=== PATIENT | female | born 1960 | race African-American/Black ===

== ENCOUNTER 2021-06-26 06:29 | Inpatient (IN) | payer MEDICAID, OTHER ==
[~2021-06-26] VITALS: Ht 167.6 cm; Wt 80.7 kg
[2021-06-26 08:55] LABS: BASOPHILS % 0.4 % (0.0-2.0); EOSINOPHILS % 0.2 % (0.0-5.0); HEMATOCRIT. 42.9 % (36.0-48.0); HEMOGLOBIN. 14.2 g/dL (12.0-16.0); LYMPHOCYTES % 21.9 % (20.0-50.0); MEAN CORPUSCULAR HEMOGLOBIN 31.3 pg (28.0-32.0); MEAN CORPUSCULAR VOLUME 94.6 fL (81.0-99.0); MEAN PLATELET VOLUME 10.7 fl (7.4-10.4); MONOCYTES % 6.8 % (2.0-8.0); NEUTROPHILS % 70.7 % (40.0-76.0); PLATELET 224 x1000/uL (130-400); RED BLOOD CELL COUNT 4.53 mill/uL (4.2-5.4); RED CELL DISTRIBUTION WIDTH 14.1 % (11.6-14.6)
[2021-06-26 09:03] LABS: CHLORIDE 109 mEq/L (98-107)
[2021-06-26 09:08] LABS: ETHANOL BLOOD < 10 mg/dL
[2021-06-26 09:13] LABS: CREATINE KINASE 371 IU/L (26-192)
[2021-06-26] MEDS ORDERED: SODIUM CHLORIDE 0.9% 1,000 ML IV ONE (10:00)
[2021-06-26] MEDS ORDERED: DEXTROSE 50% WATER 50ML SYRINGE IV PRN (20:45)
[2021-06-26] MEDS ORDERED: ONDANSETRON HCL 4MG/2ML INJ IV PRN (20:45)
[2021-06-26] MEDS: BLOOD SUGAR DIAGNOSTIC STRIP TEST SCH (23:52)
[2021-06-26] MEDS: ENOXAPARIN 40MG/0.4ML SYR SUBCUT SCH (23:53)
[2021-06-27] MEDS: INSULIN LISPRO 100 UNITS/ML SUBCUT SCH ×5 (00:08→20:29)
[2021-06-27 01:43] LABS: CLARITY URINE CLEAR (CLEAR); COLOR URINE YELLOW (YELLOW); KETONES URINE NEGATIVE (NEGATIVE); LEUKOCYTE ESTERASE URINE NEGATIVE (NEGATIVE); NITRITE URINE NEGATIVE (NEGATIVE); OCCULT BLOOD URINE NEGATIVE (NEGATIVE); PH URINE 5.5 (4.5-8.0); PROTEIN URINE 2+ (NEGATIVE); SPECIFIC GRAVITY URINE 1.021 (1.005-1.030); UROBILINOGEN URINE 0.2 E.U./dL (0.2-1.0)
[2021-06-27 02:01] LABS: *BENZODIAZEPINES SCREEN URINE NEGATIVE (NEGATIVE); *COCAINE SCREEN URINE PRESUMTIVE POSITIVE (NEGATIVE); METHADONE URINE SCREEN NEGATIVE (NEGATIVE); OPIATES URINE SCREEN NEGATIVE (NEGATIVE)
[2021-06-27 02:02] LABS: *AMPHETAMINES SCREEN URINE NEGATIVE (NEGATIVE); *BARBITURATES SCREEN URINE NEGATIVE (NEGATIVE); CANNABINOID URINE SCREEN NEGATIVE (NEGATIVE); PHENCYCLIDINE URINE SCREEN NEGATIVE (NEGATIVE)
[2021-06-27] MEDS: BLOOD SUGAR DIAGNOSTIC STRIP TEST SCH ×4 (08:17→20:29)
[2021-06-27] MEDS: ASPIRIN 81MG EC TABLET PO SCH (10:46)
[2021-06-27] MEDS: AMLODIPINE 10MG TABLET PO SCH (19:10)
[2021-06-27] MEDS: ENOXAPARIN 40MG/0.4ML SYR SUBCUT SCH (20:29)
[2021-06-28 01:00] VITALS: BP 130/80
[2021-06-28 03:45] VITALS: BP 115/96
[2021-06-28 04:30] VITALS: BP 138/64
[2021-06-28] MEDS: BLOOD SUGAR DIAGNOSTIC STRIP TEST SCH ×4 (07:40→21:20)
[2021-06-28 08:00] VITALS: BP 129/72
[2021-06-28] MEDS: ASPIRIN 81MG EC TABLET PO SCH (08:45)
[2021-06-28] MEDS: AMLODIPINE 10MG TABLET PO SCH (08:45)
[2021-06-28] MEDS: INSULIN LISPRO 100 UNITS/ML SUBCUT SCH ×4 (08:52→21:22)
[2021-06-28] MEDS ORDERED: INSULIN GLARGINE UD 100 UNITS/ML SYR SUBCUT NR (13:00)
[2021-06-28 16:00] VITALS: BP 133/76
[2021-06-28 20:00] VITALS: BP 109/60
[2021-06-28] MEDS: ENOXAPARIN 40MG/0.4ML SYR SUBCUT SCH (21:20)
[2021-06-28] MEDS: INSULIN GLARGINE UD 100 UNITS/ML SYR SUBCUT SCH (21:21)
[2021-06-29] VITALS: BP 143/93
[2021-06-29 02:00] VITALS: BP 130/93
[2021-06-29] MEDS: BLOOD SUGAR DIAGNOSTIC STRIP TEST SCH ×4 (06:55→21:12)
[2021-06-29 08:00] VITALS: BP 154/89
[2021-06-29] MEDS: ASPIRIN 81MG EC TABLET PO SCH (08:45)
[2021-06-29] MEDS: AMLODIPINE 10MG TABLET PO SCH (08:45)
[2021-06-29] MEDS: INSULIN LISPRO 100 UNITS/ML SUBCUT SCH ×4 (08:46→21:13)
[2021-06-29] MEDS: INSULIN GLARGINE UD 100 UNITS/ML SYR SUBCUT SCH ×2 (11:12→21:14)
[2021-06-29 12:00] VITALS: BP 138/79
[2021-06-29 16:00] VITALS: BP 131/61
[2021-06-29 20:00] VITALS: BP 140/76
[2021-06-29] MEDS: ENOXAPARIN 40MG/0.4ML SYR SUBCUT SCH (21:14)
[2021-06-30] VITALS: BP 114/68
[2021-06-30 04:00] VITALS: BP 150/86
[2021-06-30] MEDS: BLOOD SUGAR DIAGNOSTIC STRIP TEST SCH ×4 (07:38→21:33)
[2021-06-30] MEDS: INSULIN LISPRO 100 UNITS/ML SUBCUT SCH ×4 (07:38→21:34)
[2021-06-30 08:00] VITALS: BP 136/96
[2021-06-30] MEDS: ASPIRIN 81MG EC TABLET PO SCH (09:06)
[2021-06-30] MEDS: AMLODIPINE 10MG TABLET PO SCH (09:06)
[2021-06-30] MEDS: INSULIN GLARGINE UD 100 UNITS/ML SYR SUBCUT SCH ×2 (10:43→21:34)
[2021-06-30 16:00] VITALS: BP 136/96
[2021-06-30 20:00] VITALS: BP 127/85
[2021-06-30] MEDS: ENOXAPARIN 40MG/0.4ML SYR SUBCUT SCH (21:33)
[2021-06-30] MEDS: ZOLPIDEM TARTRATE 5MG TABLET PO PRN (21:33)
[2021-07-01] VITALS: BP 125/80
[2021-07-01 04:00] VITALS: BP 137/62
[2021-07-01] MEDS: BLOOD SUGAR DIAGNOSTIC STRIP TEST SCH ×4 (07:48→21:40)
[2021-07-01 08:00] VITALS: BP 129/75
[2021-07-01] MEDS: ASPIRIN 81MG EC TABLET PO SCH (08:44)
[2021-07-01] MEDS: AMLODIPINE 10MG TABLET PO SCH (08:44)
[2021-07-01] MEDS: INSULIN LISPRO 100 UNITS/ML SUBCUT SCH ×4 (08:47→21:41)
[2021-07-01] MEDS: INSULIN GLARGINE UD 100 UNITS/ML SYR SUBCUT SCH ×2 (10:55→22:33)
[2021-07-01 12:00] VITALS: BP 115/79
[2021-07-01 16:04] VITALS: BP 120/81
[2021-07-01 20:00] VITALS: BP 137/71
[2021-07-01] MEDS: ENOXAPARIN 40MG/0.4ML SYR SUBCUT SCH (21:40)
[2021-07-01] MEDS: ZOLPIDEM TARTRATE 5MG TABLET PO PRN (21:40)
[2021-07-02] VITALS: BP 140/76
[2021-07-02 04:00] VITALS: BP 140/88
[2021-07-02] MEDS: BLOOD SUGAR DIAGNOSTIC STRIP TEST SCH ×4 (07:39→20:38)
[2021-07-02] MEDS: INSULIN LISPRO 100 UNITS/ML SUBCUT SCH ×4 (07:39→20:26)
[2021-07-02 08:00] VITALS: BP 132/79
[2021-07-02] MEDS: ASPIRIN 81MG EC TABLET PO SCH (09:45)
[2021-07-02] MEDS: AMLODIPINE 10MG TABLET PO SCH (09:46)
[2021-07-02] MEDS: INSULIN GLARGINE UD 100 UNITS/ML SYR SUBCUT SCH ×2 (09:46→22:46)
[2021-07-02 12:00] VITALS: BP 121/76
[2021-07-02 16:00] VITALS: BP 124/87
[2021-07-02 20:00] VITALS: BP 131/78
[2021-07-02] MEDS: ENOXAPARIN 40MG/0.4ML SYR SUBCUT SCH (20:26)
[2021-07-02] MEDS: ZOLPIDEM TARTRATE 5MG TABLET PO PRN (20:26)
[2021-07-03] VITALS: BP 124/72
[2021-07-03 04:00] VITALS: BP 119/88
[2021-07-03 08:00] VITALS: BP 128/75
[2021-07-03 08:15] LABS: CHLORIDE 107 mEq/L (98-107)
[2021-07-03 08:16] LABS: BASOPHILS % 0.7 % (0.0-2.0); HEMATOCRIT. 39.1 % (36.0-48.0); HEMOGLOBIN. 13.2 g/dL (12.0-16.0); LYMPHOCYTES % 27.9 % (20.0-50.0); MEAN CORPUSCULAR HEMOGLOBIN 31.2 pg (28.0-32.0); MEAN CORPUSCULAR VOLUME 92.9 fL (81.0-99.0); MEAN PLATELET VOLUME 9.6 fl (7.4-10.4); MONOCYTES % 13.3 % (2.0-8.0); NEUTROPHILS % 56.1 % (40.0-76.0); PLATELET 309 x1000/uL (130-400); RED BLOOD CELL COUNT 4.21 mill/uL (4.2-5.4)
[2021-07-03] MEDS: BLOOD SUGAR DIAGNOSTIC STRIP TEST SCH ×4 (08:26→21:00)
[2021-07-03] MEDS: ASPIRIN 81MG EC TABLET PO SCH (09:48)
[2021-07-03] MEDS: AMLODIPINE 10MG TABLET PO SCH (09:48)
[2021-07-03] MEDS: INSULIN LISPRO 100 UNITS/ML SUBCUT SCH ×4 (09:50→22:12)
[2021-07-03] MEDS: INSULIN GLARGINE UD 100 UNITS/ML SYR SUBCUT SCH ×2 (11:00→22:13)
[2021-07-03 12:00] VITALS: BP 123/70
[2021-07-03 16:00] VITALS: BP 128/65
[2021-07-03] MEDS: ZOLPIDEM TARTRATE 5MG TABLET PO PRN (22:09)
[2021-07-03] MEDS: ENOXAPARIN 40MG/0.4ML SYR SUBCUT SCH (22:09)
[2021-07-03 23:13] VITALS: BP 130/66
[2021-07-04 04:00] VITALS: BP 154/77
[2021-07-04] MEDS: BLOOD SUGAR DIAGNOSTIC STRIP TEST SCH ×4 (07:40→21:23)
[2021-07-04 08:00] VITALS: BP 135/73
[2021-07-04] MEDS: INSULIN LISPRO 100 UNITS/ML SUBCUT SCH ×4 (08:10→21:22)
[2021-07-04] MEDS: AMLODIPINE 10MG TABLET PO SCH (08:41)
[2021-07-04] MEDS: ASPIRIN 81MG EC TABLET PO SCH (08:41)
[2021-07-04] MEDS: INSULIN GLARGINE UD 100 UNITS/ML SYR SUBCUT SCH ×2 (09:40→21:22)
[2021-07-04 12:00] VITALS: BP 138/70
[2021-07-04 16:00] VITALS: BP 130/77
[2021-07-04 20:00] VITALS: BP 124/76
[2021-07-04] MEDS: ENOXAPARIN 40MG/0.4ML SYR SUBCUT SCH (21:22)
[2021-07-04] MEDS: ZOLPIDEM TARTRATE 5MG TABLET PO PRN (21:23)
[2021-07-05] VITALS: BP 112/70
[2021-07-05 04:00] VITALS: BP 112/74
[2021-07-05] MEDS: BLOOD SUGAR DIAGNOSTIC STRIP TEST SCH ×4 (07:40→21:00)
[2021-07-05 08:00] VITALS: BP 141/84
[2021-07-05] MEDS: INSULIN LISPRO 100 UNITS/ML SUBCUT SCH ×4 (08:10→22:31)
[2021-07-05] MEDS: ASPIRIN 81MG EC TABLET PO SCH (08:44)
[2021-07-05] MEDS: AMLODIPINE 10MG TABLET PO SCH (08:44)
[2021-07-05 12:00] VITALS: BP 146/78
[2021-07-05] MEDS: INSULIN GLARGINE UD 100 UNITS/ML SYR SUBCUT SCH ×2 (12:15→22:32)
[2021-07-05 16:00] VITALS: BP 142/82
[2021-07-05 20:00] VITALS: BP 162/84
[2021-07-05] MEDS: ZOLPIDEM TARTRATE 5MG TABLET PO PRN (22:31)
[2021-07-05] MEDS: ENOXAPARIN 40MG/0.4ML SYR SUBCUT SCH (22:31)
[2021-07-06 00:18] VITALS: BP 140/76
[2021-07-06 04:00] VITALS: BP 138/79
[2021-07-06 08:00] VITALS: BP 143/56
[2021-07-06] MEDS: INSULIN LISPRO 100 UNITS/ML SUBCUT SCH ×4 (08:10→20:52)
[2021-07-06] MEDS: BLOOD SUGAR DIAGNOSTIC STRIP TEST SCH ×4 (08:29→20:53)
[2021-07-06] MEDS: ACETAMINOPHEN 325MG TABLET PO PRN (08:50)
[2021-07-06] MEDS: AMLODIPINE 10MG TABLET PO SCH (08:50)
[2021-07-06] MEDS: ASPIRIN 81MG EC TABLET PO SCH (08:50)
[2021-07-06] MEDS: INSULIN GLARGINE UD 100 UNITS/ML SYR SUBCUT SCH ×2 (11:28→21:30)
[2021-07-06 12:00] VITALS: BP 118/53
[2021-07-06 16:00] VITALS: BP 122/64
[2021-07-06 20:00] VITALS: BP 138/78
[2021-07-06] MEDS: ENOXAPARIN 40MG/0.4ML SYR SUBCUT SCH (20:52)
[2021-07-06] MEDS: ZOLPIDEM TARTRATE 5MG TABLET PO PRN (20:53)
[2021-07-07] MEDS: BLOOD SUGAR DIAGNOSTIC STRIP TEST SCH ×4 (07:40→21:08)
[2021-07-07 08:00] VITALS: BP 128/64
[2021-07-07] MEDS: INSULIN LISPRO 100 UNITS/ML SUBCUT SCH ×4 (08:10→21:08)
[2021-07-07] MEDS: AMLODIPINE 10MG TABLET PO SCH (09:24)
[2021-07-07] MEDS: ASPIRIN 81MG EC TABLET PO SCH (09:25)
[2021-07-07] MEDS: INSULIN GLARGINE UD 100 UNITS/ML SYR SUBCUT SCH (10:22)
[2021-07-07 12:00] VITALS: BP 134/55
[2021-07-07 16:00] VITALS: BP 121/64
[2021-07-07 20:00] VITALS: BP 151/63
[2021-07-07] MEDS: ENOXAPARIN 40MG/0.4ML SYR SUBCUT SCH (21:08)
[2021-07-07] MEDS: ZOLPIDEM TARTRATE 5MG TABLET PO PRN (21:09)
[2021-07-08] VITALS: BP 148/89
[2021-07-08] MEDS: INSULIN GLARGINE UD 100 UNITS/ML SYR SUBCUT SCH ×3 (00:10→21:59)
[2021-07-08 04:00] VITALS: BP 151/78
[2021-07-08] MEDS: BLOOD SUGAR DIAGNOSTIC STRIP TEST SCH ×4 (07:40→21:51)
[2021-07-08 08:00] VITALS: BP 154/64
[2021-07-08] MEDS: INSULIN LISPRO 100 UNITS/ML SUBCUT SCH ×4 (08:10→21:50)
[2021-07-08] MEDS: AMLODIPINE 10MG TABLET PO SCH (09:19)
[2021-07-08] MEDS: ASPIRIN 81MG EC TABLET PO SCH (09:19)
[2021-07-08 12:00] VITALS: BP 134/64
[2021-07-08 16:00] VITALS: BP 112/67
[2021-07-08 20:00] VITALS: BP 129/83
[2021-07-08] MEDS: ENOXAPARIN 40MG/0.4ML SYR SUBCUT SCH (21:49)
[2021-07-08] MEDS: ZOLPIDEM TARTRATE 5MG TABLET PO PRN (21:49)
[2021-07-09] VITALS: BP 131/72
[2021-07-09 04:00] VITALS: BP 136/71
[2021-07-09 08:00] VITALS: BP 141/90
[2021-07-09] MEDS: BLOOD SUGAR DIAGNOSTIC STRIP TEST SCH ×4 (08:02→21:11)
[2021-07-09] MEDS: ASPIRIN 81MG EC TABLET PO SCH (08:56)
[2021-07-09] MEDS: ACETAMINOPHEN 325MG TABLET PO PRN ×2 (08:56→17:29)
[2021-07-09] MEDS: AMLODIPINE 10MG TABLET PO SCH (08:56)
[2021-07-09] MEDS: INSULIN LISPRO 100 UNITS/ML SUBCUT SCH ×4 (08:57→21:11)
[2021-07-09] MEDS: INSULIN GLARGINE UD 100 UNITS/ML SYR SUBCUT SCH ×2 (09:58→21:11)
[2021-07-09 12:00] VITALS: BP 128/82
[2021-07-09 16:00] VITALS: BP 134/84
[2021-07-09 20:00] VITALS: BP 142/71
[2021-07-09] MEDS: ENOXAPARIN 40MG/0.4ML SYR SUBCUT SCH (21:11)
[2021-07-09] MEDS: ZOLPIDEM TARTRATE 5MG TABLET PO PRN (21:12)
[2021-07-10] VITALS: BP 116/66
[2021-07-10 04:00] VITALS: BP 109/64
[2021-07-10] MEDS: BLOOD SUGAR DIAGNOSTIC STRIP TEST SCH ×4 (07:40→21:00)
[2021-07-10 08:00] VITALS: BP 136/81
[2021-07-10] MEDS: ASPIRIN 81MG EC TABLET PO SCH (09:26)
[2021-07-10] MEDS: AMLODIPINE 10MG TABLET PO SCH (09:26)
[2021-07-10] MEDS: INSULIN LISPRO 100 UNITS/ML SUBCUT SCH ×4 (09:27→21:59)
[2021-07-10] MEDS: INSULIN GLARGINE UD 100 UNITS/ML SYR SUBCUT SCH ×2 (09:27→22:00)
[2021-07-10] MEDS: ACETAMINOPHEN 325MG TABLET PO PRN (09:31)
[2021-07-10 12:00] VITALS: BP 138/84
[2021-07-10 16:00] VITALS: BP 128/78
[2021-07-10 20:00] VITALS: BP 119/65
[2021-07-10] MEDS: ENOXAPARIN 40MG/0.4ML SYR SUBCUT SCH (22:00)
[2021-07-10] MEDS ORDERED: ZOLPIDEM TARTRATE 5MG TABLET PO PRN (22:00)
[2021-07-11 04:00] VITALS: BP 133/67
[2021-07-11] MEDS: BLOOD SUGAR DIAGNOSTIC STRIP TEST SCH ×3 (07:40→17:04)
[2021-07-11 08:00] VITALS: BP 121/70
[2021-07-11 08:24] LABS: BASOPHILS % 0.8 % (0.0-2.0); EOSINOPHILS % 3.4 % (0.0-5.0); HEMATOCRIT. 38.5 % (36.0-48.0); HEMOGLOBIN. 12.8 g/dL (12.0-16.0); LYMPHOCYTES % 34.9 % (20.0-50.0); MEAN CORPUSCULAR HEMOGLOBIN 30.8 pg (28.0-32.0); MEAN CORPUSCULAR VOLUME 92.9 fL (81.0-99.0); MONOCYTES % 10.8 % (2.0-8.0); NEUTROPHILS % 50.1 % (40.0-76.0); PLATELET 342 x1000/uL (130-400); RED BLOOD CELL COUNT 4.15 mill/uL (4.2-5.4); RED CELL DISTRIBUTION WIDTH 13.8 % (11.6-14.6)
[2021-07-11 09:00] LABS: CHLORIDE 106 mEq/L (98-107)
[2021-07-11] MEDS: ASPIRIN 81MG EC TABLET PO SCH (09:25)
[2021-07-11] MEDS: AMLODIPINE 10MG TABLET PO SCH (09:25)
[2021-07-11] MEDS: ACETAMINOPHEN 325MG TABLET PO PRN (09:32)
[2021-07-11] MEDS: INSULIN GLARGINE UD 100 UNITS/ML SYR SUBCUT SCH (10:34)
[2021-07-11 11:55] VITALS: BP 120/68
[2021-07-11] MEDS: INSULIN LISPRO 100 UNITS/ML SUBCUT SCH ×2 (12:40→17:07)
[2021-07-11 15:26] VITALS: BP 123/73
[2021-07-11 17:14] VITALS: BP 17/123
== END 2021-07-11 19:30 | DRG 137 ==
LOC: ER 06:40 → MICUSO 23:57 → 7WST 06-27 22:58
PROVIDERS: ADMIT Internal Medicine; ATTEND Internal Medicine
DX: U07.1 COVID-19 (principal); E44.1 Mild protein-calorie malnutrition; E87.8 Other disorders of electrolyte and fluid balance, not elsewhere classified; E11.51 Type 2 diabetes mellitus with diabetic peripheral angiopathy without gangrene; F14.90 Cocaine use, unspecified, uncomplicated; I10 Essential (primary) hypertension; Z89.512 Acquired absence of left leg below knee; Z86.79 Personal history of other diseases of the circulatory system; Z68.26 Body mass index [BMI] 26.0-26.9, adult; Z71.51 Drug abuse counseling and surveillance of drug abuser; I73.9 Peripheral vascular disease, unspecified
CPT/HCPCS: 36415; 71045; 80048; 80053; 80305; 80307; 80320; 80329; 81003; 82550; 82962; 83605; 85025; 87426; 93005; 97110; 97116; 97162; 97530; 99285; J1650; J1815; J7030; G0480